=== PATIENT | female | born 1990 | race Two or more races ===

== ENCOUNTER 2020-07-16 18:36 | Inpatient (IN) | payer OTHER ==
[~2020-07-16] VITALS: Ht 157.5 cm; Wt 71.7 kg
[2020-07-16] MEDS ORDERED: ONDANSETRON HCL 4 MG/2 ML VIAL IV ONE (20:45)
[2020-07-16] MEDS ORDERED: MORPHINE SULFATE 4 MG/ML SYR/VIAL IV ONE (20:45)
[2020-07-16 22:36] LABS: Basophils # (auto) 0.1 10 ^3/uL (0-0.2); Basophils % (auto) 0.4 % (0.0-2.0); Eosinophils # (auto) 0.3 10 ^3/uL (0-0.8); Monocytes # (auto) 0.5 10 ^3/uL (0-1.3); Nucleated Red Blood Cells % 0.3 %
[2020-07-16 22:37] LABS: Eosinophils % (auto) 2.1 % (0.0-7.0); Hematocrit 38.2 % (36.0-46.0); Hemoglobin 16.7 g/dL (12.2-16.2); Lymphocytes # (auto) 3.2 10 ^3/uL (0.4-5.4); Lymphocytes % (auto) 24.7 % (10.0-50.0); Mean Corpuscular Hemoglobin 35.8 pg (28.0-32.0); Mean Corpuscular Volume 82.1 fL (80.0-100.0); Monocytes % (auto) 3.9 % (0.0-12.0); Neutrophils # (auto) 8.8 10 ^3/uL (1.6-8.6); Neutrophils % (auto) 68.9 % (37.0-80.0); Platelet Count (auto) 240 10^3/uL (140-450); Red Blood Cells 4.65 10^6/uL (4.0-5.20); Red Cell Distribution Width 13.2 % (11.8-14.3); White Blood Cell 12.8 10^3/uL (4.4-10.8)
[2020-07-16 22:48] LABS: Mean Corpuscular Hgb Conc. 43.7 g/dL (32.0-36.0)
[2020-07-16 22:54] LABS: Potassium 4.6 mmol/L (3.5-5.1)
[2020-07-16 23:36] LABS: BUN/Creatinine Ratio 15.5
[2020-07-17 00:37] LABS: Albumin 4.4 g/dL (3.4-5.0)
[2020-07-17 00:39] LABS: Calcium 8.9 mg/dL (8.5-10.1); Total Protein 6.6 g/dL (6.4-8.2)
[2020-07-17] MEDS ORDERED: cefTRIAXone 1GM/50ML D5W 50 ML IV ONE (00:45)
[2020-07-17] MEDS ORDERED: metroNIDAZOLE 500MG/100ML 100 ML IV ONE (00:45)
[2020-07-17] MEDS ORDERED: MORPHINE SULFATE 4 MG/ML SYR/VIAL IV PRN (00:45)
[2020-07-17] MEDS ORDERED: SODIUM CHLORIDE 0.9% 1,000 ML IV SCH (00:45)
[2020-07-17] MEDS: KETOROLAC TROMETH 30 MG/ML 1ML VIAL IV PRN ×2 (03:54→23:17)
[2020-07-17] MEDS: metroNIDAZOLE 500MG/100ML 100 ML IV SCH ×3 (05:48→23:17)
[2020-07-17] MEDS: cefTRIAXone 1GM/50ML D5W 50 ML IV SCH (09:16)
[2020-07-17] MEDS: PANTOPRAZOLE 40 MG/10 ML VIAL INJ IV SCH (09:16)
[2020-07-17] MEDS: LACTATED RINGER'S 1,000 ML IV SCH ×2 (13:50→21:18)
[2020-07-17] MEDS ORDERED: GUAI120018 PO (16:09)
[2020-07-17] MEDS ORDERED: ACET-1304 PO (16:09)
[2020-07-17] MEDS ORDERED: LORA-622 PO (16:09)
[2020-07-17] MEDS ORDERED: ASCO500T11 PO (16:09)
[2020-07-17 17:00] VITALS: BP 115/66
[2020-07-17] MEDS: ONDANSETRON HCL 4 MG/2 ML VIAL IV PRN (18:08)
[2020-07-17 22:00] VITALS: BP_SYST 106; BP_SYST 142; BP_DIAS 58; BP_DIAS 68
[2020-07-18] MEDS: LACTATED RINGER'S 1,000 ML IV SCH ×3 (04:55→22:17)
[2020-07-18 05:00] VITALS: BP 103/55
[2020-07-18] MEDS: metroNIDAZOLE 500MG/100ML 100 ML IV SCH ×3 (06:08→22:06)
[2020-07-18 07:43] LABS: Basophils # (auto) 0 10 ^3/uL (0-0.2); Basophils % (auto) 0.3 % (0.0-2.0); Eosinophils # (auto) 0.5 10 ^3/uL (0-0.8); Eosinophils % (auto) 5.7 % (0.0-7.0); Hematocrit 36.4 % (36.0-46.0); Hemoglobin 12.8 g/dL (12.2-16.2); Lymphocytes % (auto) 22.6 % (10.0-50.0); Mean Corpuscular Hemoglobin 29.8 pg (28.0-32.0); Mean Corpuscular Hgb Conc. 35.1 g/dL (32.0-36.0); Mean Corpuscular Volume 84.9 fL (80.0-100.0); Monocytes # (auto) 0.5 10 ^3/uL (0-1.3); Monocytes % (auto) 5.4 % (0.0-12.0); Neutrophils # (auto) 5.9 10 ^3/uL (1.6-8.6); Nucleated Red Blood Cells % 0.1 %; Platelet Count (auto) 169 10^3/uL (140-450); Red Blood Cells 4.29 10^6/uL (4.0-5.20); Red Cell Distribution Width 13.6 % (11.8-14.3); White Blood Cell 8.9 10^3/uL (4.4-10.8)
[2020-07-18 07:53] LABS: Albumin 3.1 g/dL (3.4-5.0); Calcium 8.1 mg/dL (8.5-10.1); Potassium 4.7 mmol/L (3.5-5.1)
[2020-07-18 07:57] LABS: Bilirubin, Total 0.6 mg/dL (0.2-1.0); Total Protein 6.5 g/dL (6.4-8.2)
[2020-07-18] MEDS: ONDANSETRON HCL 4 MG/2 ML VIAL IV PRN ×4 (07:58→20:12)
[2020-07-18] MEDS: cefTRIAXone 1GM/50ML D5W 50 ML IV SCH (07:59)
[2020-07-18] MEDS: PANTOPRAZOLE 40 MG/10 ML VIAL INJ IV SCH (07:59)
[2020-07-18 08:28] LABS: BUN/Creatinine Ratio 37.5
[2020-07-18 09:00] VITALS: BP 106/61
[2020-07-18 09:09] LABS: INR 1.09 (0.9-1.15); Partial Thromboplastin Time 27.2 sec (23.0-31.2)
[2020-07-18] MEDS ORDERED: BUPIVACAINE 0.25% INJ 50ML VIAL ONE (11:13)
[2020-07-18] MEDS ORDERED: ceFAZolin 1GM/50ML 50 ML IV ONE (12:59)
[2020-07-18 13:00] VITALS: BP 124/75
[2020-07-18] MEDS ORDERED: fentaNYL CITRATE 100 MCG/2 ML VL ONE (13:30)
[2020-07-18] MEDS ORDERED: MIDAZOLAM HCL 1MG/1ML-2 ML VIAL ONE (13:30)
[2020-07-18] MEDS ORDERED: MEPERIDINE HCL (25 MG/ML) 1ML VIAL ONE (13:30)
[2020-07-18] MEDS ORDERED: BUPIVACAINE W/ EPINEPH 0.25% INJ 50ML MDV ONE (13:39)
[2020-07-18] MEDS ORDERED: DexAMETHasone SOD PHOS 10MG/1ML VIAL INJ ONE (13:46)
[2020-07-18] MEDS ORDERED: PROPOFOL 10 MG/ML 20 ML IV ONE (13:49)
[2020-07-18] MEDS ORDERED: ROCURONIUM 10MG/ML 10ML VIAL IV ONE (13:52)
[2020-07-18] MEDS ORDERED: LABETALOL HCL 5 MG/ML 4ML SYRINGE IV PRN (14:45)
[2020-07-18] MEDS ORDERED: MORPHINE SULFATE 4 MG/ML SYR/VIAL IV PRN (14:45)
[2020-07-18] MEDS ORDERED: MIDAZOLAM HCL 1MG/1ML-2 ML VIAL IV PRN (14:45)
[2020-07-18] MEDS ORDERED: hydrALAZINE HCL 20 MG/ML VL IV PRN (14:45)
[2020-07-18] MEDS ORDERED: KETOROLAC TROMETH 30 MG/ML 1ML VIAL IV ONE (14:45)
[2020-07-18] MEDS ORDERED: ePHEDrine SULFATE 50 MG/ML AMP IV PRN (14:45)
[2020-07-18] MEDS ORDERED: HYDROmorphone HCL 2 MG/ML VL IV PRN (14:45)
[2020-07-18] MEDS ORDERED: ONDANSETRON HCL 4 MG/2 ML VIAL IV PRN (14:45)
[2020-07-18] MEDS: ACETAMINOPHEN/CODEINE#3 (300/30mg) TAB PO PRN ×2 (16:24→23:40)
[2020-07-18 16:33] VITALS: BP 111/54
[2020-07-18] MEDS: HYDROmorphone HCL 2 MG/ML VL IV PRN (20:12)
[2020-07-18 22:00] VITALS: BP 118/82
[2020-07-19] MEDS: ONDANSETRON HCL 4 MG/2 ML VIAL IV PRN (04:04)
[2020-07-19] MEDS: HYDROmorphone HCL 2 MG/ML VL IV PRN ×2 (04:04→09:09)
[2020-07-19] MEDS: LACTATED RINGER'S 1,000 ML IV SCH ×2 (04:04→12:59)
[2020-07-19 05:00] VITALS: BP 107/53
[2020-07-19] MEDS: metroNIDAZOLE 500MG/100ML 100 ML IV SCH ×2 (05:56→13:03)
[2020-07-19 06:34] LABS: Basophils # (auto) 0 10 ^3/uL (0-0.2); Basophils % (auto) 0.1 % (0.0-2.0); Eosinophils # (auto) 0 10 ^3/uL (0-0.8); Hematocrit 36.4 % (36.0-46.0); Hemoglobin 12.2 g/dL (12.2-16.2); Lymphocytes # (auto) 0.6 10 ^3/uL (0.4-5.4); Lymphocytes % (auto) 5.3 % (10.0-50.0); Mean Corpuscular Hemoglobin 28.4 pg (28.0-32.0); Mean Corpuscular Hgb Conc. 33.5 g/dL (32.0-36.0); Mean Corpuscular Volume 84.9 fL (80.0-100.0); Monocytes # (auto) 0.4 10 ^3/uL (0-1.3); Monocytes % (auto) 3.1 % (0.0-12.0); Neutrophils # (auto) 10.6 10 ^3/uL (1.6-8.6); Neutrophils % (auto) 91.5 % (37.0-80.0); Platelet Count (auto) 181 10^3/uL (140-450); Red Blood Cells 4.29 10^6/uL (4.0-5.20); White Blood Cell 11.6 10^3/uL (4.4-10.8)
[2020-07-19] MEDS: cefTRIAXone 1GM/50ML D5W 50 ML IV SCH (08:55)
[2020-07-19 09:00] VITALS: BP 130/71
[2020-07-19] MEDS: PANTOPRAZOLE 40 MG/10 ML VIAL INJ IV SCH (09:09)
[2020-07-19 13:00] VITALS: BP 119/75
[2020-07-19] MEDS ORDERED: PANT40TA2 PO (13:10)
[2020-07-19] MEDS ORDERED: IBUP400T22 PO (13:12)
[2020-07-19] MEDS ORDERED: AMOX500T86 PO (13:14)
[2020-07-19 14:46] VITALS: BP 119/75
== END 2020-07-19 16:00 | disposition home or self-care (01) | DRG 263 ==
LOC: ER 18:37 → OVERFLOW 07-17 00:41 → CENTRAL 07-17 15:43
PROVIDERS: ADMIT Nurse Practitioner; ATTEND Internal Medicine Nephrology
PROC: 3E013GC Introduction of Other Therapeutic Substance into Subcutaneous Tissue, Percutaneous Approach (ICD-10-PCS; 2020-07-18)
PROC: 0FT44ZZ Resection of Gallbladder, Percutaneous Endoscopic Approach (ICD-10-PCS; principal; 2020-07-18 13:28)
DX: K80.20 Calculus of gallbladder without cholecystitis without obstruction (principal); K85.90 Acute pancreatitis without necrosis or infection, unspecified; D72.829 Elevated white blood cell count, unspecified; Z20.822 Contact with and (suspected) exposure to COVID-19
CPT/HCPCS: 36415; 74181; 76705; 78226; 80053; 81025; 82150; 82247; 83690; 85025; 85610; 85730; 86850; 86900; 86901; 87081; 87426; 96361; 96365; 96366; 96367; C9113; G0378; J0690; J0696; J1100; J1885; J2250; J2405; J2704; J3490

== ENCOUNTER 2021-01-03 11:03 | Emergency (ER) | payer OTHER ==
[~2021-01-03] VITALS: Ht 154.9 cm; Wt 67.1 kg
[~2021-01-03 11:03] MED LIST: ACET-1304 PO; AMOX500T86 PO; ASCO500T11 PO; GUAI120018 PO; IBUP400T22 PO; LORA-622 PO; PANT40TA2 PO
[2021-01-03 11:43] LABS: Eosinophils # (auto) 0.4 10 ^3/uL (0-0.8); Hemoglobin 14.7 g/dL (12.2-16.2)
[2021-01-03 11:44] LABS: Basophils # (auto) 0.1 10 ^3/uL (0-0.2); Basophils % (auto) 0.7 % (0.0-2.0); Hematocrit 37.8 % (36.0-46.0); Lymphocytes # (auto) 3.4 10 ^3/uL (0.4-5.4); Lymphocytes % (auto) 40.8 % (10.0-50.0); Mean Corpuscular Hemoglobin 32.5 pg (28.0-32.0); Mean Corpuscular Volume 83.9 fL (80.0-100.0); Monocytes # (auto) 0.4 10 ^3/uL (0-1.3); Monocytes % (auto) 4.6 % (0.0-12.0); Neutrophils # (auto) 4.1 10 ^3/uL (1.6-8.6); Neutrophils % (auto) 48.9 % (37.0-80.0); Nucleated Red Blood Cells % 0.6 %; Red Blood Cells 4.51 10^6/uL (4.0-5.20); Red Cell Distribution Width 13.5 % (11.8-14.3); White Blood Cell 8.4 10^3/uL (4.4-10.8)
[2021-01-03 12:15] LABS: Mean Corpuscular Hgb Conc. 38.8 g/dL (32.0-36.0)
[2021-01-03 14:20] VITALS: BP 122/70
== END 2021-01-03 14:23 | disposition home or self-care (01) ==
LOC: ER 11:03
DX: N91.0 Primary amenorrhea (principal); Z32.02 Encounter for pregnancy test, result negative; Z79.1 Long term (current) use of non-steroidal anti-inflammatories (NSAID); Z79.2 Long term (current) use of antibiotics; Z79.899 Other long term (current) drug therapy
CPT/HCPCS: 36415; 84702; 85025